=== PATIENT | female | born 1990 | race Two or more races ===

== ENCOUNTER 2020-09-23 23:25 | Emergency (ER) | payer OTHER ==
[~2020-09-23] VITALS: Ht 157.5 cm; Wt 52.2 kg
[2020-09-23 23:25] VITALS: BP 127/64
--- NOTE | 2020-09-23 23:40 | NUR ---
Patient discharged to [employer] custody in stable condition. Written and verbal after care instructions given. Patient verbalizes understanding of instruction. Pt medically cleared for booking per ERMD.
== END 2020-09-23 23:41 ==
LOC: ER 23:27
DX: R10.9 Unspecified abdominal pain (principal)